=== PATIENT | male | born 1930 | race Hispanic/Latino ===

== ENCOUNTER 2017-06-22 07:25 | Day surgery (SDC) | payer MEDICARE ==
[2017-06-16 12:20] LABS: BASOPHILS % (AUTO) 0.2 % (0.0-5.0); EOSINOPHILS % (AUTO) 0.8 % (0.0-8.0); HEMATOCRIT 35.5 % (42-54); LYMPHOCYTES % (AUTO) 15.3 % (21.0-51.0); MEAN CORPUSCULAR HEMOGLOBIN 26.8 pg (27.0-33.0); MEAN CORPUSCULAR VOLUME 83.7 fL (79-99); MONOCYTES % (AUTO) 7.2 % (3.0-13.0); NEUTROPHILS % (AUTO) 76.5 % (40.0-77.0); PLATELET COUNT (AUTO) 484 K/uL (130-400); RED BLOOD CELL COUNT(AUTO) 4.24 MIL/uL (4.50-6.20); RED CELL DISTRIBUTION WIDTH 14.6 % (11.0-15.5); WHITE BLOOD COUNT (AUTO) 9.6 K/uL (4.8-10.8)
[2017-06-16 12:27] LABS: CREATININE 0.7 mg/dL (0.5-1.5); POTASSIUM 4.1 mmol/L (3.5-5.1)
[2017-06-16 12:29] LABS: INR 1.09 (0.85-1.15); PARTIAL THROMBOPLASTIN TIME 35.2 SEC (26.3-35.5); PROTHROMBIN TIME 11.4 SEC (9.6-11.6)
[2017-06-16 12:33] VITALS: BP 119/62
[~2017-06-22] VITALS: Ht 161.3 cm; Wt 54.0 kg
[2017-06-22 07:30] VITALS: BP 120/65
[2017-06-22] MEDS ORDERED: CLOP75TA14 PO (08:07)
[2017-06-22] MEDS ORDERED: DEXA2TAB PO (08:07)
[2017-06-22] MEDS ORDERED: ATOR-2 PO (08:07)
[2017-06-22] MEDS ORDERED: LISI10TA7 PO (08:07)
[2017-06-22] MEDS ORDERED: MEGE400O4 PO (08:07)
[2017-06-22] MEDS ORDERED: SODIUM CHLORIDE 0.9% 1000ML 1,000 ML IV ONE (08:21)
[2017-06-22] MEDS ORDERED: LIDOCAINE HCL 1% MDV 50ML VIAL ONE (08:58)
[2017-06-22] MEDS ORDERED: LIDOCAINE 1%-EPI 1:100,000 20 ML VIAL IJ ONE (09:35)
[2017-06-22] MEDS ORDERED: LIDOCAINE HCL 2% 20ML ONE (09:45)
[2017-06-22] MEDS ORDERED: SODIUM BICARB 50MEQ 50ML VIAL ONE (09:45)
[2017-06-22] MEDS ORDERED: MIDAZOLAM HCL 1 MG/ML 2ML VIAL ONE (10:05)
[2017-06-22] MEDS ORDERED: FENTANYL CITRATE PF 50 MCG/1 ML 2ML VIAL ONE (10:05)
[2017-06-22] MEDS ORDERED: OCTYL 2-CYANOACRYLATE 1 EACH TP ONE (10:49)
[2017-06-22 11:10] VITALS: BP 158/57
[2017-06-22 11:25] VITALS: BP 147/60
[2017-06-22 11:40] VITALS: BP 126/65
[2017-06-22 12:00] VITALS: BP 113/59
[2017-06-22 13:00] VITALS: BP 117/55
== END 2017-06-22 13:10 | disposition home or self-care (01) ==
LOC: DAH 07:25
PROVIDERS: ATTEND Internal Medicine Medical Oncology
DX: C34.91 Malignant neoplasm of unspecified part of right bronchus or lung (principal); I10 Essential (primary) hypertension; E78.00 Pure hypercholesterolemia, unspecified; I25.10 Atherosclerotic heart disease of native coronary artery without angina pectoris; E78.5 Hyperlipidemia, unspecified; Z98.49 Cataract extraction status, unspecified eye; Z82.49 Family history of ischemic heart disease and other diseases of the circulatory system
CPT/HCPCS: 36415; 36561; 77001; 80048; 85025; 85610; 85730; A4606; C1788; C1894; J1644; J2250; J3010; J3490 ×3; J7030